=== PATIENT | female | born 1935 | race Native Hawaiian/Other Pacific Islander ===

== ENCOUNTER 2023-09-17 13:43 | Inpatient (IN) | payer OTHER ==
[~2023-09-17] VITALS: Ht 167.6 cm; Wt 64.4 kg
[2023-09-17] MEDS ORDERED: TEMA30CA PO (13:52)
[2023-09-17] MEDS ORDERED: AMLO10TA59 PO (13:52)
[2023-09-17] MEDS ORDERED: PRED2.5T PO (13:52)
[2023-09-17] MEDS ORDERED: ATEN50TA PO (13:52)
[2023-09-17] MEDS: IV NORMAL SALINE 1000 ML BAG IV ONE ×2 (14:00→15:37)
[2023-09-17] MEDS ORDERED: CEFTRIAXONE /D5W 50ML IVPB **ER PYXIS IV ONE (14:06)
[2023-09-17] MEDS ORDERED: VANCOMYCIN IV 200 ML ONE (14:06)
[2023-09-17] MEDS: CEFTRIAXONE 1 G in IV DEXTROSE 5% 50 ML IV ONE ×2 (14:30→15:30)
[2023-09-17 14:31] LABS: BASOPHILS % (AUTO) 0.1 % (0.0-2.0); EOSINOPHILS % (AUTO) 0.1 % (0.0-7.0); HEMATOCRIT 55.6 % (31.2-41.9); HEMOGLOBIN 19.8 g/dL (10.9-14.3); LYMPHOCYTES # (AUTO) 0.4 K/uL (0.8-4.8); LYMPHOCYTES % (AUTO) 3.2 % (20.5-51.5); MEAN CORPUSCULAR HEMOGLOBIN 35.6 uug (24.7-32.8); MEAN CORPUSCULAR HGB CONC 36 g/dL (32.3-35.6); MEAN CORPUSCULAR VOLUME 99.8 fL (75.5-95.3); MONOCYTES # (AUTO) 0.8 K/uL (0.1-1.30); MONOCYTES % (AUTO) 7.3 % (0.0-11.0); NEUTROPHILS # (AUTO) 9.8 K/uL (1.8-8.9); NEUTROPHILS % (AUTO) 89.3 % (38.5-71.5); PLATELET COUNT (AUTO) 274 K/uL (179-408); RED BLOOD CELL COUNT(AUTO) 5.57 MIL/uL (3.63-4.92); RED CELL DISTRIBUTION WIDTH 12.3 % (12.3-17.7)
[2023-09-17 14:33] LABS: ETHANOL < 3 MG/DL (0-10)
[2023-09-17 14:38] LABS: DIFFERENTIAL COMMENT 0
[2023-09-17 14:40] LABS: ALANINE AMINOTRANSFERASE 22 U/L (14-59); ALBUMIN 4.1 g/dL (3.4-5.0); ALKALINE PHOSPHATASE 128 U/L (50-136); AMMONIA < 10 umol/L (11-32); ASPARTATE AMINOTRANSFERASE 17 U/L (15-37); BILIRUBIN,DIRECT 0.3 mg/dL (0.0-0.2); CALCIUM 10.2 mg/dL (8.5-10.1); CARBON DIOXIDE 38 mmol/L (21-32); CREATININE 5.6 mg/dL (0.6-1.3); GLUCOSE 262 mg/dL (74-106); SODIUM SERUM 126 mmol/L (136-145)
[2023-09-17 14:41] LABS: ACETAMINOPHEN < 2.0 ug/mL (10-30)
[2023-09-17 14:42] LABS: CHLORIDE 70 mmol/L (98-107); UREA NITROGEN, BLOOD 112 mg/dL (7-18)
[2023-09-17 14:43] LABS: LACTIC ACID 3.4 mmol/L (0.4-2.0)
[2023-09-17 14:45] LABS: THYROID STIMULATING HORMONE 1.126 mIU/mL (0.358-3.740)
[2023-09-17] MEDS: VANCOMYCIN IV 1,000 MG in IV DEXTROSE 5% 250 ML IV ONE (15:07)
[2023-09-17] MEDS ORDERED: DEXAMETHASONE SOD PHOSPHATE 10 MG INJ ONE (15:20)
[2023-09-17] MEDS ORDERED: HYDROCORTISONE SOD SUCCINATE 100 MG/2 ML VIAL IV ONE (15:20)
[2023-09-17] MEDS ORDERED: METRONIDAZOLE 500 MG/NS 100ML 100 ML IV ONE (15:20)
[2023-09-17] MEDS: DEXAMETHASONE SOD PHOSPHATE 4 MG INJ IV ONE (15:20)
[2023-09-17] MEDS: HYDROCORTISONE SOD SUCCINATE 100 MG/2 ML VIAL IV ONE (15:25)
[2023-09-17] MEDS: METRONIDAZOLE 500 MG/NS 100ML 100 ML IV ONE (15:30)
[2023-09-17 16:13] LABS: *BILIRUBIN,URIN 1+ (NEGATIVE); *BLOOD, URINE 3+ (NEGATIVE); *CLARITY,URINE SLIGHTLY CLOUDY (CLEAR); *COLOR,URINE DARK YELLOW (YELLOW); *KETONES,URINE 1+ (NEGATIVE); *PROTEIN,URINE 2+ (NEGATIVE); *UROBILINOGEN,URINE 0.2 E.U./dl (NORMAL); LEUKOCYTE ESTERASE ,URINE NEGATIVE (NEGATIVE); NITRITE, URINE NEGATIVE (NEGATIVE); PH,URINE 6.5 (5.0-8.0); UGLUCOSE TRACE (NEGATIVE)
[2023-09-17 16:25] LABS: RBC,URINE 50-80 /HPF (0-3)
[2023-09-17 16:26] LABS: BACTERIA,URINE MODERATE /HPF (NONE SEEN); SQUAMOUS EPITHELIAL CELL,UR MANY /HPF (NONE SEEN)
[2023-09-17 16:37] LABS: *AMPHETAMINE, URINE NEGATIVE (NEGATIVE); *BARBITURATE, URINE NEGATIVE (NEGATIVE); *BENZODIAZEPINE, URINE POSITIVE (NEGATIVE); *CANNABINOID, URINE NEGATIVE (NEGATIVE); *COCCAINE, URINE NEGATIVE (NEGATIVE); *OPIATE, URINE NEGATIVE (NEGATIVE); *PHENCYCLIDINE SCREEN,URINE NEGATIVE (NEGATIVE); FENTANYL, URINE NEGATIVE (NEGATIVE)
[2023-09-17 18:39] LABS: BASOPHILS % (AUTO) 0.1 % (0.0-2.0); HEMATOCRIT 49.3 % (31.2-41.9); HEMOGLOBIN 17.4 g/dL (10.9-14.3); LYMPHOCYTES # (AUTO) 0.3 K/uL (0.8-4.8); LYMPHOCYTES % (AUTO) 2.7 % (20.5-51.5); MEAN CORPUSCULAR HEMOGLOBIN 35.6 uug (24.7-32.8); MEAN CORPUSCULAR HGB CONC 35 g/dL (32.3-35.6); MEAN CORPUSCULAR VOLUME 100.8 fL (75.5-95.3); MONOCYTES # (AUTO) 0.4 K/uL (0.1-1.30); NEUTROPHILS # (AUTO) 10.2 K/uL (1.8-8.9); NEUTROPHILS % (AUTO) 93.2 % (38.5-71.5); PLATELET COUNT (AUTO) 225 K/uL (179-408); RED BLOOD CELL COUNT(AUTO) 4.89 MIL/uL (3.63-4.92); WHITE BLOOD COUNT (AUTO) 10.9 K/uL (3.8-11.8)
[2023-09-17 18:41] LABS: DIFFERENTIAL COMMENT 1
[2023-09-17 19:18] LABS: CALCIUM 8.1 mg/dL (8.5-10.1); CARBON DIOXIDE 35 mmol/L (21-32); CHLORIDE 86 mmol/L (98-107); CREATININE 4.1 mg/dL (0.6-1.3); GLUCOSE 202 mg/dL (74-106); POTASSIUM 4.4 mmol/L (3.5-5.1); SODIUM SERUM 131 mmol/L (136-145)
[2023-09-17 19:20] LABS: UREA NITROGEN, BLOOD 93 mg/dL (7-18)
[2023-09-17] MEDS ORDERED: PIPERACILLIN/TAZOBACTAM/D5W 50 ML IV ONE (20:16)
[2023-09-17] MEDS: PIPERACILLIN SODIUM/TAZOBACTAM 3.375 G in IV DEXTROSE 5% 50 ML IV ONE (20:25)
[2023-09-17] MEDS ORDERED: ONDANSETRON 4 MG/2 ML VIAL IV PRN (20:45)
[2023-09-17] MEDS ORDERED: ACETAMINOPHEN 650 MG SUPP.RECT RC PRN (20:45)
[2023-09-17] MEDS ORDERED: DEXTROSE 50% 50 ML DISP.SYRIN IV PRN (20:45)
[2023-09-18 00:30] VITALS: BP 115/72; TEMP 97.5; O2SAT 96
[2023-09-18] MEDS: IV D5/ 0.9% NACL 1,000 ML IV PRN (02:01)
[2023-09-18] MEDS: HEPARIN SODIUM,PORCINE 5,000 UNITS/ML VIAL SQ SCH (02:15)
[2023-09-18] MEDS: BLOOD SUGAR DIAGNOSTIC 1 EACH STRIP VI SCH (02:21)
[2023-09-18] MEDS: INSULIN REGULAR, HUMAN 300 UNIT/3 ML VIAL SQ PRN (02:22)
[2023-09-18] MEDS ORDERED: INSULIN REGULAR, HUMAN 300 UNIT/3 ML VIAL ONE (03:28)
[2023-09-18] MEDS ORDERED: PIPERACILLIN/TAZOBACTAM/D5W 50 ML ONE (03:29)
[2023-09-18] MEDS: PIPERACILLIN/TAZO 2.25 G in IV DEXTROSE 5% 50 ML IV ONE (03:32)
[2023-09-18 04:00] VITALS: BP 108/73; TEMP 97.7; O2SAT 92
[2023-09-18 06:54] LABS: BASOPHILS % (AUTO) 0.1 % (0.0-2.0); HEMATOCRIT 43.9 % (31.2-41.9); HEMOGLOBIN 15.5 g/dL (10.9-14.3); LYMPHOCYTES # (AUTO) 0.3 K/uL (0.8-4.8); LYMPHOCYTES % (AUTO) 1.8 % (20.5-51.5); MEAN CORPUSCULAR HEMOGLOBIN 35.6 uug (24.7-32.8); MEAN CORPUSCULAR HGB CONC 35 g/dL (32.3-35.6); MEAN CORPUSCULAR VOLUME 100.7 fL (75.5-95.3); MONOCYTES # (AUTO) 0.9 K/uL (0.1-1.30); MONOCYTES % (AUTO) 6.2 % (0.0-11.0); NEUTROPHILS # (AUTO) 13.6 K/uL (1.8-8.9); NEUTROPHILS % (AUTO) 91.9 % (38.5-71.5); PLATELET COUNT (AUTO) 236 K/uL (179-408); RED BLOOD CELL COUNT(AUTO) 4.36 MIL/uL (3.63-4.92); RED CELL DISTRIBUTION WIDTH 11.7 % (12.3-17.7); WHITE BLOOD COUNT (AUTO) 14.7 K/uL (3.8-11.8)
[2023-09-18 07:19] LABS: ALANINE AMINOTRANSFERASE 13 U/L (14-59); ALBUMIN 2.7 g/dL (3.4-5.0); ALKALINE PHOSPHATASE 86 U/L (50-136); ASPARTATE AMINOTRANSFERASE 9 U/L (15-37); BILIRUBIN,TOTAL 0.6 mg/dL (0.2-1.0); CARBON DIOXIDE 39 mmol/L (21-32); CHLORIDE 86 mmol/L (98-107); CHOLESTEROL 191 mg/dL (<200); CREATININE 3.7 mg/dL (0.6-1.3); GLUCOSE 185 mg/dL (74-106); HDL CHOLESTEROL 66 mg/dL (40-60); LIPASE 111 U/L (16-77); MAGNESIUM 2.3 mg/dL (1.8-2.4); PHOSPHOROUS 5.9 mg/dL (2.5-4.9); POTASSIUM 3.4 mmol/L (3.5-5.1); SODIUM SERUM 131 mmol/L (136-145); TOTAL PROTEIN, SERUM 6.3 g/dL (6.4-8.2); TRIGLYCERIDES 118 MG/DL (30-150)
[2023-09-18 07:34] VITALS: BP 124/70; TEMP 97.8; O2SAT 94
[2023-09-18 07:40] LABS: DIFFERENTIAL COMMENT 1
[2023-09-18 08:03] LABS: UREA NITROGEN, BLOOD 96 mg/dL (7-18)
[2023-09-18 08:08] LABS: CALCIUM 7.9 mg/dL (8.5-10.1)
[2023-09-18 08:17] LABS: THYROID STIMULATING HORMONE 0.249 mIU/mL (0.358-3.740)
[2023-09-18] MEDS: PANTOPRAZOLE SODIUM 40 MG VIAL IV SCH (09:14)
[2023-09-18 11:15] VITALS: BP 130/76; TEMP 97.5; O2SAT 96
[2023-09-18] MEDS: POTASSIUM CHLORIDE 10 MEQ TAB.PRT.SR PO ONE (12:00)
[2023-09-18] MEDS: PIPERACILLIN/TAZO 2.25 G in IV DEXTROSE 5% 50 ML IV SCH (12:27)
[2023-09-18 15:47] VITALS: BP 129/79; TEMP 97.5; O2SAT 96
[2023-09-18 17:48] LABS: *BILIRUBIN,URIN NEGATIVE (NEGATIVE); *BLOOD, URINE 3+ (NEGATIVE); *CLARITY,URINE CLEAR (CLEAR); *COLOR,URINE YELLOW (YELLOW); *KETONES,URINE NEGATIVE (NEGATIVE); *PROTEIN,URINE 1+ (NEGATIVE); *UROBILINOGEN,URINE 0.2 E.U./dl (NORMAL); LEUKOCYTE ESTERASE ,URINE NEGATIVE (NEGATIVE); NITRITE, URINE NEGATIVE (NEGATIVE); UGLUCOSE NEGATIVE (NEGATIVE)
[2023-09-18 18:04] LABS: *CREATININE,URINE 102.9 mg/dL (30-125); *URINE TOTAL PROTEIN RANDOM 56.7 mg/dL (<150/24HR)
[2023-09-18] MEDS: POTASSIUM CHLORIDE 50 ML IV SCH (18:07)
[2023-09-18 18:39] LABS: BACTERIA,URINE MODERATE /HPF (NONE SEEN); SQUAMOUS EPITHELIAL CELL,UR FEW /HPF (NONE SEEN); WBC,URINE 0-3 /HPF (0-3)
[2023-09-18 18:40] LABS: YEAST,URINE BUDDING YEAST /HPF (NONE SEEN)
[2023-09-18 20:36] LABS: CARBON DIOXIDE 36 mmol/L (21-32); CHLORIDE 92 mmol/L (98-107); GLUCOSE 281 mg/dL (74-106); SODIUM SERUM 134 mmol/L (136-145)
[2023-09-18 20:49] VITALS: BP 111/67; TEMP 97.6; O2SAT 96
[2023-09-18 20:49] LABS: CALCIUM 7.6 mg/dL (8.5-10.1); POTASSIUM 6.2 mmol/L (3.5-5.1); UREA NITROGEN, BLOOD 86 mg/dL (7-18)
[2023-09-18] MEDS: PIPERACILLIN SODIUM/TAZOBACTAM 3.375 G in IV DEXTROSE 5% 100 ML IV SCH (23:28)
[2023-09-18] MEDS: MORPHINE SULFATE 2 MG/1 ML DISP.SYRIN IV PRN (23:28)
[2023-09-19 00:41] VITALS: BP 109/63; TEMP 97.8; O2SAT 95
[2023-09-19 06:02] VITALS: BP 111/72; TEMP 97.6; O2SAT 96
[2023-09-19 06:39] LABS: BASOPHILS % (AUTO) 0.2 % (0.0-2.0); EOSINOPHILS % (AUTO) 0.2 % (0.0-7.0); HEMATOCRIT 43.9 % (31.2-41.9); HEMOGLOBIN 15.5 g/dL (10.9-14.3); LYMPHOCYTES # (AUTO) 0.3 K/uL (0.8-4.8); LYMPHOCYTES % (AUTO) 2.3 % (20.5-51.5); MEAN CORPUSCULAR HEMOGLOBIN 35.7 uug (24.7-32.8); MEAN CORPUSCULAR HGB CONC 35 g/dL (32.3-35.6); MEAN CORPUSCULAR VOLUME 101.3 fL (75.5-95.3); NEUTROPHILS # (AUTO) 13.1 K/uL (1.8-8.9); NEUTROPHILS % (AUTO) 90.3 % (38.5-71.5); PLATELET COUNT (AUTO) 217 K/uL (179-408); RED BLOOD CELL COUNT(AUTO) 4.34 MIL/uL (3.63-4.92); RED CELL DISTRIBUTION WIDTH 11.8 % (12.3-17.7); WHITE BLOOD COUNT (AUTO) 14.5 K/uL (3.8-11.8)
[2023-09-19 06:46] LABS: DIFFERENTIAL COMMENT 1
[2023-09-19 06:52] LABS: ALANINE AMINOTRANSFERASE 7 U/L (14-59); ALBUMIN 2.5 g/dL (3.4-5.0); ALKALINE PHOSPHATASE 79 U/L (50-136); ASPARTATE AMINOTRANSFERASE 11 U/L (15-37); BILIRUBIN,TOTAL 0.6 mg/dL (0.2-1.0); CALCIUM 8.4 mg/dL (8.5-10.1); CARBON DIOXIDE 37 mmol/L (21-32); CHLORIDE 91 mmol/L (98-107); CREATINE KINASE, TOTAL 20 U/L (26-192); CREATININE 2.7 mg/dL (0.6-1.3); GLUCOSE 141 mg/dL (74-106); MAGNESIUM 2.3 mg/dL (1.8-2.4); PHOSPHOROUS 3.6 mg/dL (2.5-4.9); SODIUM SERUM 136 mmol/L (136-145); TOTAL PROTEIN, SERUM 5.8 g/dL (6.4-8.2)
[2023-09-19 06:56] LABS: UREA NITROGEN, BLOOD 85 mg/dL (7-18)
[2023-09-19 07:03] LABS: THYROID STIMULATING HORMONE 0.569 mIU/mL (0.358-3.740)
[2023-09-19 08:00] VITALS: BP 111/67; TEMP 97.4; O2SAT 98
[2023-09-19] MEDS: POTASSIUM CHLORIDE 50 ML IV SCH (08:24)
[2023-09-19] MEDS ORDERED: DIATR MEGLU/DIATRIZOATE SODIUM 30 ML BOTTLE ONE (09:49)
[2023-09-19 11:35] VITALS: BP 131/79; TEMP 97.8; O2SAT 98
[2023-09-19 14:53] LABS: CALCIUM 8.6 mg/dL (8.5-10.1); CARBON DIOXIDE 37 mmol/L (21-32); CHLORIDE 92 mmol/L (98-107); CREATININE 2.4 mg/dL (0.6-1.3); GLUCOSE 159 mg/dL (74-106); POTASSIUM 3.7 mmol/L (3.5-5.1); SODIUM SERUM 138 mmol/L (136-145)
[2023-09-19 14:56] LABS: UREA NITROGEN, BLOOD 86 mg/dL (7-18)
[2023-09-19 16:50] VITALS: BP 137/78; TEMP 97.6; O2SAT 93
[2023-09-19 20:00] VITALS: BP 150/92; TEMP 97.8; O2SAT 92
[2023-09-20 00:42] VITALS: BP 142/88; TEMP 97.9; O2SAT 95
[2023-09-20 06:33] VITALS: BP 131/80; TEMP 97.8; O2SAT 92
[2023-09-20 08:54] VITALS: BP 126/75; TEMP 97.8; O2SAT 94
[2023-09-20 09:14] LABS: BASOPHILS % (AUTO) 0.1 % (0.0-2.0); DIFFERENTIAL COMMENT 0; EOSINOPHILS % (AUTO) 0.4 % (0.0-7.0); HEMATOCRIT 45.5 % (31.2-41.9); HEMOGLOBIN 15.6 g/dL (10.9-14.3); LYMPHOCYTES # (AUTO) 0.4 K/uL (0.8-4.8); LYMPHOCYTES % (AUTO) 3.4 % (20.5-51.5); MEAN CORPUSCULAR HEMOGLOBIN 35.2 uug (24.7-32.8); MEAN CORPUSCULAR HGB CONC 34 g/dL (32.3-35.6); MEAN CORPUSCULAR VOLUME 102.4 fL (75.5-95.3); MONOCYTES # (AUTO) 1.1 K/uL (0.1-1.30); MONOCYTES % (AUTO) 8.9 % (0.0-11.0); NEUTROPHILS # (AUTO) 11.2 K/uL (1.8-8.9); NEUTROPHILS % (AUTO) 87.2 % (38.5-71.5); PLATELET COUNT (AUTO) 201 K/uL (179-408); RED BLOOD CELL COUNT(AUTO) 4.44 MIL/uL (3.63-4.92); WHITE BLOOD COUNT (AUTO) 12.8 K/uL (3.8-11.8)
[2023-09-20 09:36] LABS: ALANINE AMINOTRANSFERASE 16 U/L (14-59); ALBUMIN 2.4 g/dL (3.4-5.0); ALKALINE PHOSPHATASE 74 U/L (50-136); ASPARTATE AMINOTRANSFERASE 12 U/L (15-37); BILIRUBIN,TOTAL 0.5 mg/dL (0.2-1.0); CALCIUM 8.7 mg/dL (8.5-10.1); CARBON DIOXIDE 37 mmol/L (21-32); CHLORIDE 98 mmol/L (98-107); CREATININE 1.7 mg/dL (0.6-1.3); GLUCOSE 157 mg/dL (74-106); MAGNESIUM 2.2 mg/dL (1.8-2.4); SODIUM SERUM 141 mmol/L (136-145); TOTAL PROTEIN, SERUM 5.9 g/dL (6.4-8.2); UREA NITROGEN, BLOOD 68 mg/dL (7-18)
[2023-09-20 09:46] LABS: POTASSIUM 2.8 mmol/L (3.5-5.1)
[2023-09-20 11:06] LABS: A/G RATIO 1.1 (0.7-1.7); ALBUMIN 2.7 g/dL (2.9-4.4); ALPHA-1-GLOBULIN 0.3 g/dL (0.0-0.4); BETA GLOBULIN 0.6 g/dL (0.7-1.3); GAMMA GLOBULIN 0.7 g/dL (0.4-1.8); GLOBULIN, TOTAL 2.5 g/dL (2.2-3.9); M-SPIKE Not Observed g/dL (Not Observed); PTH, INTACT 111 pg/mL (15-65)
[2023-09-20 11:11] LABS: BAND % (MANUAL) 1 % (0-10); EOSINOPHILS % (MANUAL) 1 % (0-8); LYMPHOCYTES % (MANUAL) 2 % (20-40); MONOCYTES % (MANUAL) 8 % (2-10); NEUTROPHILS % (MANUAL) 88 % (42-75)
[2023-09-20 11:12] LABS: ANISOCYTOSIS 1+; PLATELET ESTIMATE ADEQUATE
[2023-09-20 11:31] VITALS: BP 137/83; TEMP 97.5; O2SAT 96
[2023-09-20] MEDS: POTASSIUM CHLORIDE 50 ML IV SCH ×2 (11:59→15:43)
[2023-09-20] MEDS ORDERED: TPN/PPN PER PHARMACY IV PRN (13:45)
[2023-09-20 15:42] VITALS: BP_SYST 119; BP_SYST 142; BP_DIAS 70; BP_DIAS 92; TEMP 97.4; TEMP 98.2; O2SAT 94
[2023-09-20] MEDS: POTASSIUM CHLORIDE 10 MEQ, LIDOCAINE-MPF 1% 1 ML in IV DEXTROSE 5% 100 ML IV SCH (17:08)
[2023-09-20 20:59] VITALS: BP 139/85; TEMP 97.8; O2SAT 94
[2023-09-21 00:15] VITALS: BP 119/55; TEMP 97.6; O2SAT 93
[2023-09-21 04:43] VITALS: BP 127/82; TEMP 97.3; O2SAT 94
[2023-09-21 07:25] LABS: EOSINOPHILS % (AUTO) 0.4 % (0.0-7.0); HEMATOCRIT 45.3 % (31.2-41.9); HEMOGLOBIN 15.5 g/dL (10.9-14.3); LYMPHOCYTES # (AUTO) 0.4 K/uL (0.8-4.8); LYMPHOCYTES % (AUTO) 3.4 % (20.5-51.5); MEAN CORPUSCULAR HEMOGLOBIN 35.2 uug (24.7-32.8); MEAN CORPUSCULAR HGB CONC 34 g/dL (32.3-35.6); MEAN CORPUSCULAR VOLUME 102.3 fL (75.5-95.3); MONOCYTES # (AUTO) 1.2 K/uL (0.1-1.30); MONOCYTES % (AUTO) 9.1 % (0.0-11.0); NEUTROPHILS % (AUTO) 87.1 % (38.5-71.5); PLATELET COUNT (AUTO) 213 K/uL (179-408); RED BLOOD CELL COUNT(AUTO) 4.42 MIL/uL (3.63-4.92); RED CELL DISTRIBUTION WIDTH 11.7 % (12.3-17.7); WHITE BLOOD COUNT (AUTO) 12.7 K/uL (3.8-11.8)
[2023-09-21 07:29] LABS: DIFFERENTIAL COMMENT 1
[2023-09-21 07:39] VITALS: BP 135/79; TEMP 97.5; O2SAT 92
[2023-09-21 07:51] LABS: CALCIUM 8.4 mg/dL (8.5-10.1); CREATININE 1.3 mg/dL (0.6-1.3); PHOSPHOROUS 1.5 mg/dL (2.5-4.9)
[2023-09-21 07:54] LABS: POTASSIUM 2.8 mmol/L (3.5-5.1)
[2023-09-21] MEDS ORDERED: POTASSIUM CHLORIDE 50 ML IV SCH (08:00)
[2023-09-21] MEDS: POTASSIUM CHLORIDE 50 ML IV SCH (08:50)
[2023-09-21] MEDS: PIPERACILLIN SODIUM/TAZOBACTAM 3.375 G in IV DEXTROSE 5% 100 ML IV SCH (09:27)
[2023-09-21] MEDS: POTASSIUM CHLORIDE 10 MEQ, LIDOCAINE-MPF 1% 1 ML in IV DEXTROSE 5% 100 ML IV SCH (11:12)
[2023-09-21 11:45] VITALS: BP 141/84; TEMP 97.2; O2SAT 94
[2023-09-21 16:00] VITALS: BP 122/74; TEMP 97.9; O2SAT 96
[2023-09-21] MEDS ORDERED: TPN/PPN PER PHARMACY IV PRN (16:45)
[2023-09-21] MEDS ORDERED: SODIUM PHOSPHATE MM 15 MMOL in IV NORMAL SALINE 250 ML IV ONE ×2 (17:45→18:00)
[2023-09-21] MEDS: SODIUM PHOSPHATE MM 15 MMOL in IV NORMAL SALINE 250 ML IV ONE (20:29)
[2023-09-21 20:51] VITALS: BP 134/83; TEMP 97.5; O2SAT 97
[2023-09-22 00:26] VITALS: BP 136/84; TEMP 97.9; O2SAT 95
[2023-09-22] MEDS: IV 10% DEXTROSE 1,000 ML IV PRN (00:40)
[2023-09-22 05:21] VITALS: BP 114/71; TEMP 97.7; O2SAT 94
[2023-09-22 07:47] LABS: CALCIUM 8.4 mg/dL (8.5-10.1); CREATININE 1.3 mg/dL (0.6-1.3); PHOSPHOROUS 2.9 mg/dL (2.5-4.9)
[2023-09-22 08:00] VITALS: BP 140/93; TEMP 97.8; O2SAT 97
[2023-09-22 08:00] LABS: POTASSIUM 2.8 mmol/L (3.5-5.1)
[2023-09-22] MEDS ORDERED: IV 10% DEXTROSE 1,000 ML IV PRN (08:00)
[2023-09-22] MEDS: POTASSIUM CHLORIDE 10 MEQ, LIDOCAINE 1% 1 ML in IV DEXTROSE 5% 100 ML IV SCH (11:40)
[2023-09-22 12:00] VITALS: BP 137/88; TEMP 97.6; O2SAT 97
[2023-09-22 16:00] VITALS: BP 139/86; TEMP 97.2; O2SAT 98
[2023-09-22] MEDS ORDERED: AA 4.25%/CALCIUM/LYTES/DEX 10% 1,000 ML IV SCH (16:15)
[2023-09-22] MEDS: TPN AMINO ACID 4.25%/D10% 1,000 ML IV PRN (16:52)
[2023-09-22 19:40] VITALS: BP 127/88; TEMP 97.3; O2SAT 96
[2023-09-23 00:15] VITALS: BP 133/82; TEMP 98.3; O2SAT 95
[2023-09-23 04:20] VITALS: BP 139/76; TEMP 98.2; O2SAT 95
[2023-09-23 07:37] LABS: BASOPHILS % (AUTO) 0.1 % (0.0-2.0); DIFFERENTIAL COMMENT 1; EOSINOPHILS # (AUTO) 0.1 K/uL (0.0-0.7); EOSINOPHILS % (AUTO) 0.4 % (0.0-7.0); HEMATOCRIT 41.6 % (31.2-41.9); HEMOGLOBIN 14.6 g/dL (10.9-14.3); LYMPHOCYTES # (AUTO) 0.6 K/uL (0.8-4.8); LYMPHOCYTES % (AUTO) 4.4 % (20.5-51.5); MEAN CORPUSCULAR HEMOGLOBIN 35.6 uug (24.7-32.8); MEAN CORPUSCULAR HGB CONC 35 g/dL (32.3-35.6); MEAN CORPUSCULAR VOLUME 101.2 fL (75.5-95.3); MONOCYTES # (AUTO) 1.4 K/uL (0.1-1.30); MONOCYTES % (AUTO) 9.8 % (0.0-11.0); NEUTROPHILS # (AUTO) 11.8 K/uL (1.8-8.9); NEUTROPHILS % (AUTO) 85.3 % (38.5-71.5); PLATELET COUNT (AUTO) 215 K/uL (179-408); RED BLOOD CELL COUNT(AUTO) 4.11 MIL/uL (3.63-4.92); RED CELL DISTRIBUTION WIDTH 11.8 % (12.3-17.7); WHITE BLOOD COUNT (AUTO) 13.9 K/uL (3.8-11.8)
[2023-09-23 07:47] LABS: CALCIUM 8.3 mg/dL (8.5-10.1); CARBON DIOXIDE 33 mmol/L (21-32); CHLORIDE 96 mmol/L (98-107); CREATININE 1.2 mg/dL (0.6-1.3); GLUCOSE 183 mg/dL (74-106); MAGNESIUM 1.6 mg/dL (1.8-2.4); PHOSPHOROUS 1.5 mg/dL (2.5-4.9); SODIUM SERUM 135 mmol/L (136-145); UREA NITROGEN, BLOOD 32 mg/dL (7-18)
[2023-09-23 07:48] LABS: POTASSIUM 2.8 mmol/L (3.5-5.1)
[2023-09-23 08:02] VITALS: BP 130/77; TEMP 98.4; O2SAT 96
[2023-09-23] MEDS: MAGNESIUM SULFATE/D5W 100 ML IV SCH (08:20)
[2023-09-23] MEDS: POTASSIUM CHLORIDE 50 ML IV SCH (08:21)
[2023-09-23] MEDS: POTASSIUM PHOSPHATE MM 15 MMOL in IV NORMAL SALINE 250 ML IV ONE (09:41)
[2023-09-23 12:03] VITALS: BP 139/81; TEMP 98.1; O2SAT 98
[2023-09-23] MEDS: TPN BAG #2 IV SCH (13:36)
[2023-09-23 16:02] VITALS: BP 131/76; TEMP 98.2; O2SAT 97
[2023-09-23 20:00] VITALS: BP 141/96; TEMP 97.8; O2SAT 97
[2023-09-24 06:11] VITALS: BP 145/99; TEMP 98.5; O2SAT 96
[2023-09-24 08:00] VITALS: BP 141/92; TEMP 97.6; O2SAT 97
[2023-09-24 08:14] LABS: BASOPHILS % (AUTO) 0.2 % (0.0-2.0); EOSINOPHILS # (AUTO) 0.1 K/uL (0.0-0.7); EOSINOPHILS % (AUTO) 0.4 % (0.0-7.0); HEMOGLOBIN 15.2 g/dL (10.9-14.3); LYMPHOCYTES # (AUTO) 0.7 K/uL (0.8-4.8); MEAN CORPUSCULAR HEMOGLOBIN 35.7 uug (24.7-32.8); MEAN CORPUSCULAR HGB CONC 35 g/dL (32.3-35.6); MEAN CORPUSCULAR VOLUME 100.9 fL (75.5-95.3); MONOCYTES # (AUTO) 1.3 K/uL (0.1-1.30); MONOCYTES % (AUTO) 9.1 % (0.0-11.0); NEUTROPHILS # (AUTO) 12.3 K/uL (1.8-8.9); NEUTROPHILS % (AUTO) 85.3 % (38.5-71.5); PLATELET COUNT (AUTO) 231 K/uL (179-408); RED BLOOD CELL COUNT(AUTO) 4.27 MIL/uL (3.63-4.92); RED CELL DISTRIBUTION WIDTH 11.4 % (12.3-17.7); WHITE BLOOD COUNT (AUTO) 14.4 K/uL (3.8-11.8)
[2023-09-24 08:27] LABS: DIFFERENTIAL COMMENT 1
[2023-09-24] MEDS ORDERED: IV NS 1000 ML 1,000 ML IV ONE (08:30)
[2023-09-24 08:33] LABS: CALCIUM 8.5 mg/dL (8.5-10.1); CREATININE 1.1 mg/dL (0.6-1.3); MAGNESIUM 2.1 mg/dL (1.8-2.4); PHOSPHOROUS 2.2 mg/dL (2.5-4.9); POTASSIUM 3.1 mmol/L (3.5-5.1)
[2023-09-24] MEDS: IV NORMAL SALINE 500 ML IV ONE (09:09)
[2023-09-24] MEDS: IV NS 1000 ML 1,000 ML IV PRN (11:23)
[2023-09-24] MEDS: METOPROLOL TARTRATE 5 MG/5 ML VIAL IVP PRN (11:40)
[2023-09-24 12:00] VITALS: BP 143/80; TEMP 97.6
[2023-09-24] MEDS ORDERED: TPN IV SCH (12:30)
[2023-09-24] MEDS: TPN BOTTLE #3 IV SCH (13:36)
[2023-09-24 16:06] VITALS: BP 137/84; TEMP 97.8; O2SAT 97
[2023-09-24 20:00] VITALS: BP 98/57; TEMP 98.5; O2SAT 95
[2023-09-25 00:12] VITALS: BP 156/95; TEMP 98.4; O2SAT 98
[2023-09-25] MEDS: METOPROLOL TARTRATE 5 MG/5 ML VIAL IVP ONE ×2 (04:26→22:14)
[2023-09-25 07:31] LABS: EOSINOPHILS # (AUTO) 0.1 K/uL (0.0-0.7); EOSINOPHILS % (AUTO) 0.3 % (0.0-7.0); HEMATOCRIT 44.4 % (31.2-41.9); HEMOGLOBIN 15.4 g/dL (10.9-14.3); LYMPHOCYTES # (AUTO) 0.6 K/uL (0.8-4.8); LYMPHOCYTES % (AUTO) 3.5 % (20.5-51.5); MEAN CORPUSCULAR HGB CONC 35 g/dL (32.3-35.6); MEAN CORPUSCULAR VOLUME 103.8 fL (75.5-95.3); MONOCYTES # (AUTO) 1.7 K/uL (0.1-1.30); NEUTROPHILS # (AUTO) 14.3 K/uL (1.8-8.9); NEUTROPHILS % (AUTO) 86.2 % (38.5-71.5); PLATELET COUNT (AUTO) 211 K/uL (179-408); RED BLOOD CELL COUNT(AUTO) 4.28 MIL/uL (3.63-4.92); RED CELL DISTRIBUTION WIDTH 11.6 % (12.3-17.7); WHITE BLOOD COUNT (AUTO) 16.6 K/uL (3.8-11.8)
[2023-09-25 07:56] LABS: DIFFERENTIAL COMMENT 1
[2023-09-25 07:58] LABS: CALCIUM 8.3 mg/dL (8.5-10.1); CREATININE 0.8 mg/dL (0.6-1.3); POTASSIUM 3.3 mmol/L (3.5-5.1)
[2023-09-25 08:08] VITALS: BP 138/89; TEMP 98.6; O2SAT 94
[2023-09-25] MEDS ORDERED: TPN BAG # 4 IV SCH (08:30)
[2023-09-25] MEDS ORDERED: POTASSIUM CHLORIDE 50 ML IV SCH (09:00)
[2023-09-25] MEDS ORDERED: DIATR MEGLU/DIATRIZOATE SODIUM 30 ML BOTTLE ONE (09:56)
[2023-09-25] MEDS: IV FAT EMULSIONS 20% 250 ML in PREMIXED 1 EACH IV SCH (10:11)
[2023-09-25] MEDS: TPN BAG #4 IV SCH (10:18)
[2023-09-25 10:40] LABS: PHOSPHOROUS 2.6 mg/dL (2.5-4.9)
[2023-09-25 12:00] VITALS: BP 135/78; TEMP 99.3; O2SAT 96
[2023-09-25 17:36] VITALS: BP 152/95; TEMP 98.3; O2SAT 95
[2023-09-25 20:44] VITALS: BP 143/92; TEMP 98.5; O2SAT 96
[2023-09-26 00:08] VITALS: BP 141/93; TEMP 98; O2SAT 95
[2023-09-26] MEDS: TPN BAG #5 IV SCH (03:45)
[2023-09-26 05:29] VITALS: BP 149/76; TEMP 99.1; O2SAT 95
[2023-09-26 07:54] VITALS: BP 136/91; TEMP 99.5; O2SAT 97
[2023-09-26 08:04] LABS: BASOPHILS # (AUTO) 0.1 K/UL (0.0-0.2); BASOPHILS % (AUTO) 0.3 % (0.0-2.0); EOSINOPHILS % (AUTO) 0.1 % (0.0-7.0); HEMATOCRIT 40.9 % (31.2-41.9); HEMOGLOBIN 14.4 g/dL (10.9-14.3); LYMPHOCYTES # (AUTO) 0.6 K/uL (0.8-4.8); LYMPHOCYTES % (AUTO) 2.6 % (20.5-51.5); MEAN CORPUSCULAR HEMOGLOBIN 35.7 uug (24.7-32.8); MEAN CORPUSCULAR HGB CONC 35 g/dL (32.3-35.6); MEAN CORPUSCULAR VOLUME 101.4 fL (75.5-95.3); MONOCYTES # (AUTO) 2.2 K/uL (0.1-1.30); MONOCYTES % (AUTO) 10.1 % (0.0-11.0); NEUTROPHILS # (AUTO) 18.9 K/uL (1.8-8.9); NEUTROPHILS % (AUTO) 86.9 % (38.5-71.5); PLATELET COUNT (AUTO) 237 K/uL (179-408); RED BLOOD CELL COUNT(AUTO) 4.03 MIL/uL (3.63-4.92); RED CELL DISTRIBUTION WIDTH 11.9 % (12.3-17.7); WHITE BLOOD COUNT (AUTO) 21.8 K/uL (3.8-11.8)
[2023-09-26 08:06] LABS: DIFFERENTIAL COMMENT 1
[2023-09-26] MEDS ORDERED: LIDOCAINE HCL 1% 20 ML VIAL ONE (08:08)
[2023-09-26] MEDS ORDERED: BUPIVACAINE/EPI PF 0.25% 10 ML VIAL IJ ONE (08:08)
[2023-09-26 08:21] LABS: CALCIUM 8.4 mg/dL (8.5-10.1); MAGNESIUM 1.8 mg/dL (1.8-2.4); PHOSPHOROUS 2.3 mg/dL (2.5-4.9)
[2023-09-26] MEDS ORDERED: FENTANYL CITRATE 100 MCG/2 ML AMPUL ONE (08:59)
[2023-09-26] MEDS ORDERED: BUPIVACAINE PF 0.5% 30 ML VIAL ONE (09:00)
[2023-09-26] MEDS ORDERED: ROCURONIUM BROMIDE 50 MG/5 ML VIAL ONE (09:00)
[2023-09-26] MEDS: POTASSIUM CHLORIDE 50 ML IV SCH (09:00)
[2023-09-26] MEDS ORDERED: FAMOTIDINE. 20 MG/2 ML VIAL IV ONE (09:00)
[2023-09-26] MEDS ORDERED: FLUCONAZOLE 400MG /NS 200ML IV 400 MG in PREMIXED 1 EACH IV SCH (09:30)
[2023-09-26] MEDS ORDERED: ALBUMIN HUMAN 5% 250 ML ONE ×2 (10:29→11:38)
[2023-09-26] MEDS ORDERED: ETOMIDATE 20 MG/10 ML VIAL ONE (13:27)
[2023-09-26 16:00] VITALS: BP 141/93; TEMP 98.1; O2SAT 97
[2023-09-26] MEDS ORDERED: IOHEXOL 350 100 ML INFUS..BTL ONE (16:23)
[2023-09-26] MEDS ORDERED: IV NORMAL SALINE 250 ML IV ONE (16:23)
[2023-09-26] MEDS ORDERED: SWABABLE VALVE TRANSFER SET EA MC ONE (16:23)
[2023-09-26] MEDS: VANCOMYCIN IV 1,000 MG in IV DEXTROSE 5% 250 ML IV SCH (16:58)
[2023-09-26] MEDS: FLUCONAZOLE 200 MG/NS 100ML IV 200 MG in PREMIXED 1 EACH IV SCH (17:02)
[2023-09-26] MEDS: TPN BAG #6 IV SCH (17:09)
[2023-09-26 20:15] VITALS: BP 142/90; TEMP 97.2; O2SAT 99
[2023-09-26 21:33] VITALS: O2SAT 98
[2023-09-27] VITALS (33 sets, daily range): BP systolic 104–136; BP diastolic 58–117; TEMP 96.5–98.2; O2SAT 74–100
[2023-09-27 07:35] LABS: HEMATOCRIT 33.8 % (31.2-41.9); HEMOGLOBIN 11.5 g/dL (10.9-14.3); LYMPHOCYTES # (AUTO) 0.3 K/uL (0.8-4.8); LYMPHOCYTES % (AUTO) 1.3 % (20.5-51.5); MEAN CORPUSCULAR HEMOGLOBIN 35.2 uug (24.7-32.8); MEAN CORPUSCULAR HGB CONC 34 g/dL (32.3-35.6); MEAN CORPUSCULAR VOLUME 103.4 fL (75.5-95.3); MONOCYTES # (AUTO) 1.6 K/uL (0.1-1.30); MONOCYTES % (AUTO) 6.5 % (0.0-11.0); NEUTROPHILS # (AUTO) 23.3 K/uL (1.8-8.9); NEUTROPHILS % (AUTO) 92.2 % (38.5-71.5); PLATELET COUNT (AUTO) 213 K/uL (179-408); RED BLOOD CELL COUNT(AUTO) 3.27 MIL/uL (3.63-4.92); RED CELL DISTRIBUTION WIDTH 11.9 % (12.3-17.7); WHITE BLOOD COUNT (AUTO) 25.3 K/uL (3.8-11.8)
[2023-09-27 07:44] LABS: DIFFERENTIAL COMMENT 1
[2023-09-27 07:56] LABS: CALCIUM 7.3 mg/dL (8.5-10.1); CREATININE 0.8 mg/dL (0.6-1.3); MAGNESIUM 1.8 mg/dL (1.8-2.4); PHOSPHOROUS 2.1 mg/dL (2.5-4.9); POTASSIUM 3.6 mmol/L (3.5-5.1)
[2023-09-27] MEDS ORDERED: IV NS 1000 ML 1,000 ML IV PRN (09:15)
[2023-09-27] MEDS: AMIODARONE HCL IV 150 MG in IV DEXTROSE 5% 100 ML IV ONE (10:40)
[2023-09-27] MEDS: AMIODARONE HCL IV 450 MG in IV DEXTROSE 5% 250 ML IV PRN (11:07)
[2023-09-27] MEDS: TPN BAG # 7 IV SCH (13:28)
[2023-09-27] MEDS: POTASSIUM PHOSPHATE MM 15 MMOL in IV NORMAL SALINE 250 ML IV ONE (13:48)
[2023-09-27] MEDS: VANCOMYCIN IV 1,000 MG in IV DEXTROSE 5% 250 ML IV SCH (16:55)
[2023-09-27] MEDS: MICAFUNGIN SODIUM 100 MG in IV NORMAL SALINE 100 ML IV SCH (16:55)
[2023-09-27] MEDS ORDERED: FLUCONAZOLE 200 MG/NS 100ML IV 200 MG in PREMIXED 1 EACH IV SCH (17:00)
[2023-09-27] MEDS ORDERED: MEROPENEM 1GM/NS 100ML IVPB **ER PYXIS ONLY IV ONE (23:09)
[2023-09-27] MEDS: LORAZEPAM 2 MG/1 ML VIAL IV ONE (23:19)
[2023-09-27] MEDS: MEROPENEM 1 G in IV NORMAL SALINE 100 ML IV ONE (23:19)
[2023-09-28] VITALS (33 sets, daily range): BP systolic 116–168; BP diastolic 77–105; TEMP 97.8–98.1; O2SAT 94–100
[2023-09-28] MEDS: TPN BAG #8 IV SCH (05:07)
[2023-09-28 05:42] LABS: BASOPHILS % (AUTO) 0.1 % (0.0-2.0); EOSINOPHILS # (AUTO) 0.1 K/uL (0.0-0.7); EOSINOPHILS % (AUTO) 0.3 % (0.0-7.0); HEMATOCRIT 31.3 % (31.2-41.9); HEMOGLOBIN 10.3 g/dL (10.9-14.3); LYMPHOCYTES # (AUTO) 0.3 K/uL (0.8-4.8); LYMPHOCYTES % (AUTO) 1.5 % (20.5-51.5); MEAN CORPUSCULAR HEMOGLOBIN 35.5 uug (24.7-32.8); MEAN CORPUSCULAR HGB CONC 33 g/dL (32.3-35.6); MEAN CORPUSCULAR VOLUME 107.6 fL (75.5-95.3); MONOCYTES # (AUTO) 1.2 K/uL (0.1-1.30); MONOCYTES % (AUTO) 5.3 % (0.0-11.0); NEUTROPHILS # (AUTO) 20.3 K/uL (1.8-8.9); NEUTROPHILS % (AUTO) 92.8 % (38.5-71.5); PLATELET COUNT (AUTO) 246 K/uL (179-408); RED BLOOD CELL COUNT(AUTO) 2.91 MIL/uL (3.63-4.92); RED CELL DISTRIBUTION WIDTH 12.9 % (12.3-17.7); WHITE BLOOD COUNT (AUTO) 21.9 K/uL (3.8-11.8)
[2023-09-28] MEDS: MEROPENEM 1 G in IV NORMAL SALINE 100 ML IV SCH ×2 (05:44→18:21)
[2023-09-28 05:46] LABS: DIFFERENTIAL COMMENT 1
[2023-09-28 05:57] LABS: CALCIUM 6.9 mg/dL (8.5-10.1); CREATININE 0.9 mg/dL (0.6-1.3); PHOSPHOROUS 5.1 mg/dL (2.5-4.9)
[2023-09-28] MEDS ORDERED: MEROPENEM 1 G in IV NORMAL SALINE 100 ML IV ONE (06:00)
[2023-09-28 06:23] LABS: POTASSIUM 6.7 mmol/L (3.5-5.1)
[2023-09-28 06:24] LABS: MAGNESIUM 0.5 mg/dL (1.8-2.4)
[2023-09-28] MEDS ORDERED: IV 10% DEXTROSE 1,000 ML IV ONE (07:00)
[2023-09-28 10:01] LABS: ALANINE AMINOTRANSFERASE 25 U/L (14-59); ALBUMIN 1.8 g/dL (3.4-5.0); ALKALINE PHOSPHATASE 101 U/L (50-136); ASPARTATE AMINOTRANSFERASE 18 U/L (15-37); BILIRUBIN,TOTAL 1.6 mg/dL (0.2-1.0); CALCIUM 8.3 mg/dL (8.5-10.1); CARBON DIOXIDE 23 mmol/L (21-32); CHLORIDE 110 mmol/L (98-107); GLUCOSE 166 mg/dL (74-106); SODIUM SERUM 144 mmol/L (136-145); UREA NITROGEN, BLOOD 30 mg/dL (7-18)
[2023-09-28 10:32] LABS: POTASSIUM 4.7 mmol/L (3.5-5.1)
[2023-09-28 11:50] LABS: MAGNESIUM 1.8 mg/dL (1.8-2.4); PHOSPHOROUS 2.4 mg/dL (2.5-4.9)
[2023-09-28] MEDS: TPN BAG #9 IV SCH (19:00)
[2023-09-29] VITALS (22 sets, daily range): BP systolic 143–174; BP diastolic 92–119; TEMP 97.8–98.3; O2SAT 93–100
[2023-09-29 04:34] LABS: BASOPHILS # (AUTO) 0.2 K/UL (0.0-0.2); BASOPHILS % (AUTO) 1.3 % (0.0-2.0); EOSINOPHILS # (AUTO) 0.1 K/uL (0.0-0.7); EOSINOPHILS % (AUTO) 0.6 % (0.0-7.0); HEMOGLOBIN 11.9 g/dL (10.9-14.3); LYMPHOCYTES # (AUTO) 0.4 K/uL (0.8-4.8); LYMPHOCYTES % (AUTO) 2.5 % (20.5-51.5); MEAN CORPUSCULAR HEMOGLOBIN 34.9 uug (24.7-32.8); MEAN CORPUSCULAR HGB CONC 34 g/dL (32.3-35.6); MEAN CORPUSCULAR VOLUME 102.9 fL (75.5-95.3); MONOCYTES # (AUTO) 0.9 K/uL (0.1-1.30); MONOCYTES % (AUTO) 5.8 % (0.0-11.0); NEUTROPHILS # (AUTO) 14.6 K/uL (1.8-8.9); NEUTROPHILS % (AUTO) 89.8 % (38.5-71.5); PLATELET COUNT (AUTO) 273 K/uL (179-408); RED CELL DISTRIBUTION WIDTH 11.9 % (12.3-17.7); WHITE BLOOD COUNT (AUTO) 16.2 K/uL (3.8-11.8)
[2023-09-29 04:36] LABS: DIFFERENTIAL COMMENT 1
[2023-09-29 04:58] LABS: CALCIUM 7.8 mg/dL (8.5-10.1); CARBON DIOXIDE 23 mmol/L (21-32); CHLORIDE 112 mmol/L (98-107); CREATININE 0.7 mg/dL (0.6-1.3); GLUCOSE 192 mg/dL (74-106); MAGNESIUM 1.5 mg/dL (1.8-2.4); PHOSPHOROUS 3.1 mg/dL (2.5-4.9); POTASSIUM 4.3 mmol/L (3.5-5.1); SODIUM SERUM 139 mmol/L (136-145); UREA NITROGEN, BLOOD 25 mg/dL (7-18)
[2023-09-29] MEDS: IV NORMAL SALINE 500 ML IV ONE (06:22)
[2023-09-29] MEDS: TPN BAG #10 IV SCH (08:39)
[2023-09-29] MEDS: MAGNESIUM SULFATE/D5W 100 ML IV SCH (11:38)
[2023-09-29] MEDS: METOPROLOL TARTRATE 50 MG TABLET PO SCH (11:40)
[2023-09-29] MEDS: BISACODYL 10 MG SUPP.RECT RC ONE (13:14)
[2023-09-29] MEDS: MEROPENEM 1 G in IV NORMAL SALINE 100 ML IV SCH (13:16)
[2023-09-29] MEDS ORDERED: DIATR MEGLU/DIATRIZOATE SODIUM 120 ML BOTTLE ONE (14:00)
[2023-09-29] MEDS: METOCLOPRAMIDE HCL 10 MG/2 ML VIAL IV SCH (22:39)
[2023-09-29] MEDS: TPN BAG #11 IV SCH (22:51)
[2023-09-30] VITALS (25 sets, daily range): BP systolic 119–180; BP diastolic 72–113; TEMP 97.6–98.2; O2SAT 93–100
[2023-09-30 05:17] LABS: BASOPHILS % (AUTO) 0.2 % (0.0-2.0); EOSINOPHILS % (AUTO) 0.2 % (0.0-7.0); HEMATOCRIT 33.4 % (31.2-41.9); HEMOGLOBIN 11.3 g/dL (10.9-14.3); LYMPHOCYTES # (AUTO) 0.4 K/uL (0.8-4.8); MEAN CORPUSCULAR HEMOGLOBIN 35.2 uug (24.7-32.8); MEAN CORPUSCULAR HGB CONC 34 g/dL (32.3-35.6); MEAN CORPUSCULAR VOLUME 103.8 fL (75.5-95.3); MONOCYTES # (AUTO) 0.8 K/uL (0.1-1.30); MONOCYTES % (AUTO) 3.9 % (0.0-11.0); NEUTROPHILS # (AUTO) 18.7 K/uL (1.8-8.9); NEUTROPHILS % (AUTO) 93.7 % (38.5-71.5); PLATELET COUNT (AUTO) 243 K/uL (179-408); RED BLOOD CELL COUNT(AUTO) 3.22 MIL/uL (3.63-4.92); RED CELL DISTRIBUTION WIDTH 12.1 % (12.3-17.7)
[2023-09-30 05:30] LABS: DIFFERENTIAL COMMENT 1
[2023-09-30 05:55] LABS: CALCIUM 7.2 mg/dL (8.5-10.1); CARBON DIOXIDE 25 mmol/L (21-32); CHLORIDE 121 mmol/L (98-107); CREATININE 0.6 mg/dL (0.6-1.3); GLUCOSE 166 mg/dL (74-106); MAGNESIUM 2.3 mg/dL (1.8-2.4); PHOSPHOROUS 3.2 mg/dL (2.5-4.9); TRIGLYCERIDES 90 MG/DL (30-150); UREA NITROGEN, BLOOD 21 mg/dL (7-18)
[2023-09-30 06:00] LABS: POTASSIUM 2.8 mmol/L (3.5-5.1); SODIUM SERUM 156 mmol/L (136-145)
[2023-09-30] MEDS: POTASSIUM CHLORIDE 50 ML IV SCH (09:11)
[2023-09-30] MEDS: TPN IV SCH (13:20)
[2023-09-30] MEDS: GABAPENTIN 100 MG CAPSULE PO SCH (15:08)
[2023-09-30] MEDS: TRAMADOL HCL 50 MG TABLET PO PRN (15:27)
[2023-09-30] MEDS: VANCOMYCIN IV 1,000 MG in IV DEXTROSE 5% 250 ML IV SCH (16:29)
[2023-09-30] MEDS ORDERED: REMEDY ESSENTIAL ZINC PASTE 113 GM TOP PRN (19:30)
[2023-09-30] MEDS: APIXABAN 5 MG TABLET PO SCH (20:47)
[2023-09-30] MEDS ORDERED: GABAPENTIN 100 MG CAPSULE PO SCH (21:00)
[2023-10-01] VITALS (13 sets, daily range): BP systolic 101–156; BP diastolic 79–126; TEMP 97.4–97.9; O2SAT 90–100
[2023-10-01] MEDS: TPN IV SCH (02:41)
[2023-10-01 05:20] LABS: BASOPHILS % (AUTO) 0.2 % (0.0-2.0); EOSINOPHILS # (AUTO) 0.2 K/uL (0.0-0.7); EOSINOPHILS % (AUTO) 0.8 % (0.0-7.0); HEMATOCRIT 36.1 % (31.2-41.9); HEMOGLOBIN 12.2 g/dL (10.9-14.3); LYMPHOCYTES # (AUTO) 0.5 K/uL (0.8-4.8); LYMPHOCYTES % (AUTO) 2.4 % (20.5-51.5); MEAN CORPUSCULAR HEMOGLOBIN 35.2 uug (24.7-32.8); MEAN CORPUSCULAR HGB CONC 34 g/dL (32.3-35.6); MEAN CORPUSCULAR VOLUME 104.4 fL (75.5-95.3); MONOCYTES # (AUTO) 0.8 K/uL (0.1-1.30); MONOCYTES % (AUTO) 3.9 % (0.0-11.0); NEUTROPHILS # (AUTO) 18.6 K/uL (1.8-8.9); NEUTROPHILS % (AUTO) 92.7 % (38.5-71.5); PLATELET COUNT (AUTO) 274 K/uL (179-408); RED BLOOD CELL COUNT(AUTO) 3.45 MIL/uL (3.63-4.92)
[2023-10-01 05:33] LABS: CALCIUM 7.9 mg/dL (8.5-10.1); CARBON DIOXIDE 28 mmol/L (21-32); CHLORIDE 118 mmol/L (98-107); CREATININE 0.7 mg/dL (0.6-1.3); GLUCOSE 216 mg/dL (74-106); POTASSIUM 3.6 mmol/L (3.5-5.1); SODIUM SERUM 152 mmol/L (136-145); UREA NITROGEN, BLOOD 27 mg/dL (7-18)
[2023-10-01 05:37] LABS: DIFFERENTIAL COMMENT 1
[2023-10-01] MEDS: MIRALAX 17 GM POWD.PACK PO SCH (09:19)
[2023-10-01] MEDS ORDERED: WEAN OF TPN 1 EA EACH IV PRN (10:15)
[2023-10-01] MEDS ORDERED: DEXTROSE 50% 50 ML DISP.SYRIN IV PRN (10:30)
[2023-10-01] MEDS ORDERED: INSULIN REGULAR, HUMAN 300 UNIT/3 ML VIAL SQ PRN (10:30)
[2023-10-01] MEDS ORDERED: INSULIN REGULAR, HUMAN 300 UNITS/3 ML VIAL SQ PRN (10:30)
[2023-10-01] MEDS ORDERED: TPN BAG #14 IV SCH ×2 (11:00)
[2023-10-01] MEDS: BLOOD SUGAR DIAGNOSTIC 1 EACH STRIP VI SCH (11:30)
[2023-10-01] MEDS ORDERED: BLOOD SUGAR DIAGNOSTIC 1 EACH STRIP VI SCH (11:30)
[2023-10-01] MEDS ORDERED: POTASSIUM CHLORIDE IV SCH (18:00)
[2023-10-01] MEDS ORDERED: SODIUM CHLORIDE IV SCH (18:00)
[2023-10-01] MEDS ORDERED: [UNRECOGNIZED DRUG - OTHER] IV SCH (18:00)
[2023-10-01] MEDS: DEXTROSE 50% 50 ML DISP.SYRIN IV PRN (20:41)
[2023-10-02] VITALS (10 sets, daily range): BP systolic 116–145; BP diastolic 70–85; TEMP 97.3–99.2; O2SAT 92–100
[2023-10-02 07:00] LABS: MAGNESIUM 1.8 mg/dL (1.8-2.4); PHOSPHOROUS 2.4 mg/dL (2.5-4.9)
[2023-10-02 16:12] LABS: BASOPHILS # (AUTO) 0.2 K/UL (0.0-0.2); BASOPHILS % (AUTO) 1.1 % (0.0-2.0); DIFFERENTIAL COMMENT 0; EOSINOPHILS # (AUTO) 0.1 K/uL (0.0-0.7); EOSINOPHILS % (AUTO) 0.6 % (0.0-7.0); HEMATOCRIT 30.9 % (31.2-41.9); HEMOGLOBIN 10.4 g/dL (10.9-14.3); LYMPHOCYTES # (AUTO) 0.5 K/uL (0.8-4.8); MEAN CORPUSCULAR HEMOGLOBIN 34.8 uug (24.7-32.8); MEAN CORPUSCULAR HGB CONC 34 g/dL (32.3-35.6); MEAN CORPUSCULAR VOLUME 103.5 fL (75.5-95.3); MONOCYTES % (AUTO) 5.5 % (0.0-11.0); NEUTROPHILS # (AUTO) 16.1 K/uL (1.8-8.9); NEUTROPHILS % (AUTO) 89.8 % (38.5-71.5); PLATELET COUNT (AUTO) 279 K/uL (179-408); RED BLOOD CELL COUNT(AUTO) 2.98 MIL/uL (3.63-4.92); RED CELL DISTRIBUTION WIDTH 12.2 % (12.3-17.7)
[2023-10-02] MEDS: IV D5W 1000ML 1,000 ML IV ONE (17:19)
[2023-10-02] MEDS: NEUTRA PHOS PACKET PO ONE (17:21)
[2023-10-03] VITALS (7 sets, daily range): BP systolic 143–165; BP diastolic 83–101; TEMP 98.4–99.6; O2SAT 92–98
[2023-10-03 06:53] LABS: BASOPHILS # (AUTO) 0.1 K/UL (0.0-0.2); BASOPHILS % (AUTO) 0.6 % (0.0-2.0); EOSINOPHILS # (AUTO) 0.1 K/uL (0.0-0.7); EOSINOPHILS % (AUTO) 0.7 % (0.0-7.0); HEMOGLOBIN 10.6 g/dL (10.9-14.3); LYMPHOCYTES # (AUTO) 0.6 K/uL (0.8-4.8); LYMPHOCYTES % (AUTO) 4.2 % (20.5-51.5); MEAN CORPUSCULAR HEMOGLOBIN 35.3 uug (24.7-32.8); MEAN CORPUSCULAR HGB CONC 34 g/dL (32.3-35.6); MEAN CORPUSCULAR VOLUME 103.2 fL (75.5-95.3); MONOCYTES # (AUTO) 0.8 K/uL (0.1-1.30); MONOCYTES % (AUTO) 5.9 % (0.0-11.0); NEUTROPHILS # (AUTO) 12.5 K/uL (1.8-8.9); NEUTROPHILS % (AUTO) 88.6 % (38.5-71.5); PLATELET COUNT (AUTO) 244 K/uL (179-408); RED CELL DISTRIBUTION WIDTH 12.2 % (12.3-17.7); WHITE BLOOD COUNT (AUTO) 14.1 K/uL (3.8-11.8)
[2023-10-03 07:04] LABS: DIFFERENTIAL COMMENT 1
[2023-10-03 07:08] LABS: CALCIUM 7.9 mg/dL (8.5-10.1); CREATININE 0.8 mg/dL (0.6-1.3); MAGNESIUM 1.6 mg/dL (1.8-2.4); PHOSPHOROUS 2.8 mg/dL (2.5-4.9); POTASSIUM 3.4 mmol/L (3.5-5.1)
[2023-10-03] MEDS: MAGNESIUM SULFATE/D5W 100 ML IV SCH (09:54)
[2023-10-03] MEDS: POTASSIUM CHLORIDE 50 ML IV SCH (09:54)
[2023-10-03] MEDS: INSULIN REGULAR, HUMAN 300 UNIT/3 ML VIAL SQ PRN (11:43)
[2023-10-03] MEDS: VANCOMYCIN IV 1,000 MG in IV DEXTROSE 5% 250 ML IV SCH (12:12)
[2023-10-03] MEDS: METOPROLOL TARTRATE 5 MG/5 ML VIAL IVP ONE (13:11)
[2023-10-04] VITALS (8 sets, daily range): BP systolic 135–144; BP diastolic 61–85; TEMP 97.3–99.2; O2SAT 93–100
[2023-10-04 07:58] LABS: MAGNESIUM 1.8 mg/dL (1.8-2.4); PHOSPHOROUS 2.5 mg/dL (2.5-4.9)
[2023-10-04] MEDS: METOPROLOL TARTRATE 50 MG TABLET PO SCH (08:42)
[2023-10-04] MEDS: VANCOMYCIN IV 1,000 MG in IV DEXTROSE 5% 250 ML IV SCH (10:34)
[2023-10-04] MEDS: MEROPENEM 1 G in IV NORMAL SALINE 100 ML IV SCH (17:01)
[2023-10-05 00:40] VITALS: O2SAT 95
[2023-10-05 07:43] LABS: MAGNESIUM 1.7 mg/dL (1.8-2.4); PHOSPHOROUS 2.5 mg/dL (2.5-4.9)
[2023-10-05] MEDS: MAGNESIUM SULFATE/D5W 100 ML IV SCH (09:26)
[2023-10-05 12:00] VITALS: O2SAT 95
[2023-10-05 12:01] VITALS: BP 143/84; TEMP 97.5; O2SAT 92
[2023-10-05] MEDS: ENSURE ENLIVE (VAN) 240 ML LIQUID PO SCH (13:00)
[2023-10-05 14:19] LABS: CALCIUM 8.1 mg/dL (8.5-10.1); CARBON DIOXIDE 26 mmol/L (21-32); CHLORIDE 103 mmol/L (98-107); CREATININE 0.7 mg/dL (0.6-1.3); GLUCOSE 90 mg/dL (74-106); POTASSIUM 3.4 mmol/L (3.5-5.1); SODIUM SERUM 138 mmol/L (136-145); UREA NITROGEN, BLOOD 15 mg/dL (7-18)
[2023-10-05 16:00] VITALS: BP 147/81; TEMP 98.3; O2SAT 97
[2023-10-05 20:07] VITALS: BP 143/78; TEMP 98; O2SAT 96
[2023-10-05 20:48] VITALS: O2SAT 96
[2023-10-06] VITALS (7 sets, daily range): BP systolic 130–155; BP diastolic 72–91; TEMP 98.4–99.1; O2SAT 95–98
[2023-10-06 07:26] LABS: BASOPHILS # (AUTO) 0.1 K/UL (0.0-0.2); BASOPHILS % (AUTO) 1.4 % (0.0-2.0); EOSINOPHILS # (AUTO) 0.2 K/uL (0.0-0.7); HEMATOCRIT 29.3 % (31.2-41.9); HEMOGLOBIN 9.8 g/dL (10.9-14.3); LYMPHOCYTES # (AUTO) 0.5 K/uL (0.8-4.8); LYMPHOCYTES % (AUTO) 5.2 % (20.5-51.5); MEAN CORPUSCULAR HEMOGLOBIN 34.7 uug (24.7-32.8); MEAN CORPUSCULAR HGB CONC 34 g/dL (32.3-35.6); MEAN CORPUSCULAR VOLUME 103.8 fL (75.5-95.3); MONOCYTES # (AUTO) 0.7 K/uL (0.1-1.30); MONOCYTES % (AUTO) 6.9 % (0.0-11.0); NEUTROPHILS # (AUTO) 8.9 K/uL (1.8-8.9); NEUTROPHILS % (AUTO) 84.5 % (38.5-71.5); PLATELET COUNT (AUTO) 460 K/uL (179-408); RED BLOOD CELL COUNT(AUTO) 2.82 MIL/uL (3.63-4.92); RED CELL DISTRIBUTION WIDTH 12.2 % (12.3-17.7); WHITE BLOOD COUNT (AUTO) 10.6 K/uL (3.8-11.8)
[2023-10-06 07:33] LABS: CALCIUM 8.1 mg/dL (8.5-10.1); CARBON DIOXIDE 29 mmol/L (21-32); CHLORIDE 102 mmol/L (98-107); CREATININE 0.7 mg/dL (0.6-1.3); GLUCOSE 102 mg/dL (74-106); POTASSIUM 3.3 mmol/L (3.5-5.1); SODIUM SERUM 137 mmol/L (136-145); UREA NITROGEN, BLOOD 16 mg/dL (7-18)
[2023-10-06 07:38] LABS: DIFFERENTIAL COMMENT 1
[2023-10-06] MEDS: PROTEIN SUPPLEMENT (PROSTAT) 30 ML LIQUID PO SCH (08:07)
[2023-10-06] MEDS: POTASSIUM CHLORIDE 20 MEQ POWDER PACKET GT ONE (10:32)
[2023-10-07 00:22] VITALS: O2SAT 97
[2023-10-07 06:46] LABS: BASOPHILS # (AUTO) 0.1 K/UL (0.0-0.2); BASOPHILS % (AUTO) 0.7 % (0.0-2.0); EOSINOPHILS # (AUTO) 0.3 K/uL (0.0-0.7); EOSINOPHILS % (AUTO) 2.9 % (0.0-7.0); HEMATOCRIT 28.7 % (31.2-41.9); HEMOGLOBIN 9.7 g/dL (10.9-14.3); LYMPHOCYTES # (AUTO) 0.6 K/uL (0.8-4.8); MEAN CORPUSCULAR HEMOGLOBIN 35.2 uug (24.7-32.8); MEAN CORPUSCULAR HGB CONC 34 g/dL (32.3-35.6); MEAN CORPUSCULAR VOLUME 104.3 fL (75.5-95.3); MONOCYTES # (AUTO) 0.7 K/uL (0.1-1.30); NEUTROPHILS # (AUTO) 7.6 K/uL (1.8-8.9); NEUTROPHILS % (AUTO) 82.4 % (38.5-71.5); PLATELET COUNT (AUTO) 499 K/uL (179-408); RED BLOOD CELL COUNT(AUTO) 2.75 MIL/uL (3.63-4.92); RED CELL DISTRIBUTION WIDTH 12.1 % (12.3-17.7); WHITE BLOOD COUNT (AUTO) 9.3 K/uL (3.8-11.8)
[2023-10-07 06:50] LABS: CALCIUM 8.3 mg/dL (8.5-10.1); CREATININE 0.6 mg/dL (0.6-1.3); POTASSIUM 3.7 mmol/L (3.5-5.1)
[2023-10-07 06:51] LABS: DIFFERENTIAL COMMENT 1
[2023-10-07] MEDS: PANTOPRAZOLE SODIUM 40 MG TABLET.DR PO SCH (06:57)
[2023-10-07 12:00] VITALS: BP 123/77; TEMP 98.1; O2SAT 97
[2023-10-07 15:54] VITALS: BP 143/75; TEMP 98.2; O2SAT 90
[2023-10-07 20:00] VITALS: BP 128/86; TEMP 98.1; O2SAT 100
[2023-10-08 04:43] VITALS: O2SAT 96
[2023-10-08 06:24] VITALS: BP 135/87; TEMP 98.9; O2SAT 97
[2023-10-08 11:55] VITALS: BP 137/85; TEMP 98.4; O2SAT 96
[2023-10-08 16:00] VITALS: BP 132/82; TEMP 98.4; O2SAT 97
[2023-10-08 20:00] VITALS: TEMP 98.4
[2023-10-08] MEDS ORDERED: GABAPENTIN 100 MG CAPSULE PO SCH (21:00)
[2023-10-08 23:26] VITALS: O2SAT 97
[2023-10-09] VITALS (8 sets, daily range): BP systolic 108–138; BP diastolic 65–70; TEMP 97.6–100.7; O2SAT 94–99
[2023-10-09 09:00] LABS: BASOPHILS # (AUTO) 0.1 K/UL (0.0-0.2); EOSINOPHILS # (AUTO) 0.2 K/uL (0.0-0.7); EOSINOPHILS % (AUTO) 2.1 % (0.0-7.0); HEMATOCRIT 27.9 % (31.2-41.9); HEMOGLOBIN 9.4 g/dL (10.9-14.3); LYMPHOCYTES # (AUTO) 0.6 K/uL (0.8-4.8); LYMPHOCYTES % (AUTO) 5.9 % (20.5-51.5); MEAN CORPUSCULAR HEMOGLOBIN 34.9 uug (24.7-32.8); MEAN CORPUSCULAR HGB CONC 34 g/dL (32.3-35.6); MEAN CORPUSCULAR VOLUME 103.4 fL (75.5-95.3); MONOCYTES # (AUTO) 0.7 K/uL (0.1-1.30); MONOCYTES % (AUTO) 7.6 % (0.0-11.0); NEUTROPHILS # (AUTO) 8.2 K/uL (1.8-8.9); NEUTROPHILS % (AUTO) 83.4 % (38.5-71.5); PLATELET COUNT (AUTO) 561 K/uL (179-408); RED CELL DISTRIBUTION WIDTH 12.3 % (12.3-17.7); WHITE BLOOD COUNT (AUTO) 9.8 K/uL (3.8-11.8)
[2023-10-09 09:06] LABS: DIFFERENTIAL COMMENT 1
[2023-10-09 09:08] LABS: CALCIUM 8.1 mg/dL (8.5-10.1); CREATININE 0.6 mg/dL (0.6-1.3); POTASSIUM 3.6 mmol/L (3.5-5.1)
[2023-10-09] MEDS ORDERED: APIX5TAB PO (10:01)
[2023-10-09] MEDS ORDERED: Lactose-Free Food PO (10:01)
[2023-10-09] MEDS ORDERED: POLY17PO4 PO (10:01)
[2023-10-09] MEDS ORDERED: TRAM50TA2 PO (10:01)
[2023-10-09] MEDS ORDERED: GABA-532 PO (10:01)
[2023-10-09] MEDS ORDERED: PANT40TA49 PO (10:01)
[2023-10-09] MEDS ORDERED: PROT30LI PO (10:01)
[2023-10-09] MEDS ORDERED: METO50TA16 PO (10:01)
[2023-10-10 06:34] VITALS: BP 110/63; TEMP 99.4; O2SAT 98
[2023-10-10 11:06] VITALS: BP 139/76; TEMP 98.4; O2SAT 100
[2023-10-10 15:24] VITALS: BP 134/66; TEMP 98.4; O2SAT 94
[2023-10-10 17:54] VITALS: O2SAT 97
[2023-10-10 20:00] VITALS: BP 129/65; TEMP 99.6; O2SAT 96
[2023-10-11 00:10] VITALS: O2SAT 97
[2023-10-11 06:54] VITALS: BP 106/81; TEMP 97.8; O2SAT 100
[2023-10-11 06:54] LABS: CALCIUM 8.4 mg/dL (8.5-10.1); CREATININE 0.6 mg/dL (0.6-1.3); POTASSIUM 3.8 mmol/L (3.5-5.1)
[2023-10-11 06:55] LABS: BASOPHILS % (AUTO) 0.4 % (0.0-2.0); EOSINOPHILS # (AUTO) 0.1 K/uL (0.0-0.7); EOSINOPHILS % (AUTO) 1.5 % (0.0-7.0); HEMATOCRIT 28.6 % (31.2-41.9); HEMOGLOBIN 9.7 g/dL (10.9-14.3); LYMPHOCYTES # (AUTO) 0.6 K/uL (0.8-4.8); LYMPHOCYTES % (AUTO) 6.7 % (20.5-51.5); MEAN CORPUSCULAR HEMOGLOBIN 34.6 uug (24.7-32.8); MEAN CORPUSCULAR HGB CONC 34 g/dL (32.3-35.6); MEAN CORPUSCULAR VOLUME 102.6 fL (75.5-95.3); MONOCYTES # (AUTO) 0.7 K/uL (0.1-1.30); MONOCYTES % (AUTO) 8.2 % (0.0-11.0); NEUTROPHILS # (AUTO) 7.5 K/uL (1.8-8.9); NEUTROPHILS % (AUTO) 83.2 % (38.5-71.5); PLATELET COUNT (AUTO) 471 K/uL (179-408); RED BLOOD CELL COUNT(AUTO) 2.79 MIL/uL (3.63-4.92); RED CELL DISTRIBUTION WIDTH 12.1 % (12.3-17.7)
[2023-10-11 07:00] LABS: DIFFERENTIAL COMMENT 1
[2023-10-11 11:50] VITALS: BP 132/82; TEMP 97.3; O2SAT 100
[2023-10-11 12:00] VITALS: O2SAT 98
[2023-10-11 15:58] VITALS: BP 129/73; TEMP 97.7; O2SAT 98
[2023-10-11 19:30] VITALS: BP 129/69; TEMP 99.7; O2SAT 92
[2023-10-12 05:52] VITALS: BP 135/78; TEMP 97.8; O2SAT 96
[2023-10-12 06:42] LABS: CALCIUM 8.2 mg/dL (8.5-10.1); CREATININE 0.6 mg/dL (0.6-1.3); POTASSIUM 3.6 mmol/L (3.5-5.1)
[2023-10-12 11:37] VITALS: BP 116/70; TEMP 97.8; O2SAT 96
[2023-10-12 15:22] VITALS: BP 141/76; TEMP 99.1; O2SAT 96
[2023-10-12 16:14] VITALS: O2SAT 96
== END 2023-10-12 19:05 | disposition home health service (06) | DRG 329 ==
LOC: ER 13:43 → TELE3 20:10 → MEDSURG3 09-23 10:05 → TELE3 09-24 08:06 → TELE-TD3 09-27 10:20 → CCU 09-27 11:41 → TELE-TD3 10-01 18:57 → TELE3 10-03 09:20 → MEDSURG3 10-04 11:05
PROVIDERS: ADMIT Internal Medicine; ATTEND Nurse Practitioner Family
PROC: 05HD33Z Insertion of Infusion Device into Right Cephalic Vein, Percutaneous Approach (ICD-10-PCS; 2023-09-20)
PROC: 02HV33Z Insertion of Infusion Device into Superior Vena Cava, Percutaneous Approach (ICD-10-PCS; 2023-09-22)
PROC: B548ZZA Ultrasonography of Superior Vena Cava, Guidance (ICD-10-PCS; 2023-09-22)
PROC: 0WJG4ZZ Inspection of Peritoneal Cavity, Percutaneous Endoscopic Approach (ICD-10-PCS; principal; 2023-09-26)
PROC: 0DB80ZZ Excision of Small Intestine, Open Approach (ICD-10-PCS; 2023-09-26)
PROC: 0DN80ZZ Release Small Intestine, Open Approach (ICD-10-PCS; 2023-09-26)
PROC: 0D180Z8 Bypass Small Intestine to Small Intestine, Open Approach (ICD-10-PCS; 2023-09-26)
DX: K56.52 Intestinal adhesions [bands] with complete obstruction (principal); A41.9 Sepsis, unspecified organism; G93.41 Metabolic encephalopathy; N17.0 Acute kidney failure with tubular necrosis; I21.A1 Myocardial infarction type 2; E87.0 Hyperosmolality and hypernatremia; E87.1 Hypo-osmolality and hyponatremia; E87.20 Acidosis, unspecified; I48.92 Unspecified atrial flutter; S36.499A Other injury of unspecified part of small intestine, initial encounter; K56.2 Volvulus; Z66 Do not resuscitate; I48.0 Paroxysmal atrial fibrillation; E87.6 Hypokalemia; E86.0 Dehydration; E87.5 Hyperkalemia; E11.65 Type 2 diabetes mellitus with hyperglycemia; E11.22 Type 2 diabetes mellitus with diabetic chronic kidney disease; I12.9 Hypertensive chronic kidney disease with stage 1 through stage 4 chronic kidney disease, or unspecified chronic kidney disease; N18.9 Chronic kidney disease, unspecified; M81.0 Age-related osteoporosis without current pathological fracture; I70.0 Atherosclerosis of aorta; K45.8 Other specified abdominal hernia without obstruction or gangrene; E88.09 Other disorders of plasma-protein metabolism, not elsewhere classified; D75.1 Secondary polycythemia; K46.9 Unspecified abdominal hernia without obstruction or gangrene; K86.9 Disease of pancreas, unspecified; K63.89 Other specified diseases of intestine; Z90.710 Acquired absence of both cervix and uterus; Z87.891 Personal history of nicotine dependence; Z86.73 Personal history of transient ischemic attack (TIA), and cerebral infarction without residual deficits; Z85.41 Personal history of malignant neoplasm of cervix uteri; Z85.42 Personal history of malignant neoplasm of other parts of uterus; Z92.21 Personal history of antineoplastic chemotherapy; Z79.899 Other long term (current) drug therapy
CPT/HCPCS: 36415; 36569; 70030-TC; 70450; 71045; 71275; 72125; 74018; 74250; 82378; 83605; 83690; 83735; 83970; 84100; 84132; 84155; 84165; 84295; 84300; 84443; 84478; 84484; 85025; 85651; 85730; 87040; 93005; 93307; A4606; A4649; A4663; A6213; C1758; C9113; G0378; G0480; J0282; J0696; J1100; J1450; J1644; J1720; J1815; J2001; J2060; J2185; J2248; J2270; J2405; J2543; J2765; J3010; J3370; J3475; J3480; J3490; J7040; J7042; J7050; J7060; J7070; J7131; P9045; Q9963; Q9967